=== PATIENT | male | born 1955 | race Caucasian/White ===

== ENCOUNTER 2018-03-14 12:41 | Day surgery (SDC) | payer OTHER ==
[2018-03-11 10:07] VITALS: BMI 23.0
[~2018-03-14 12:41] MED LIST: DEXAMETHASONE SOD PHOSPHATE 10 MG/ML 1 ML VIAL IV ONE; DEXAMETHASONE SOD PHOSPHATE 4 MG/ML 1 ML VIAL IV ONE; FAMOTIDINE 20 MG/2 ML VIAL IV ONE; HYDROmorphone 0.5 MG/0.5 ML SYRINGE IVP PRN; ONDANSETRON 4 MG/2 ML VIAL IVP ONE; ceFAZolin 1,000 MG in DEXTROSE/WATER 1 50ML.BAG IV ONE
[2018-03-14] MEDS: OXYMETAZOLINE 0.05% NASL SPRAY 1 SPRAY BOTTLE NASAL ONE ×5 (13:03→13:24)
[2018-03-14 13:11] VITALS: TEMP 97.6
[2018-03-14] MEDS: LACTATED RINGERS 1,000 ML IV SCH ×2 (13:14→13:51)
[2018-03-14] MEDS ORDERED: LIDOCAINE 1% 20 ML VIAL (10MG/ML) FOR IV START INTRADERMA ONE (13:15)
[2018-03-14] MEDS ORDERED: PROPOFOL 10 MG/ML 20 ML VIAL IV ONE (13:54)
[2018-03-14] MEDS ORDERED: MIDAZOLAM 2 MG/2 ML VIAL ONE (13:54)
[2018-03-14] MEDS ORDERED: SUCCINYLCHOLINE CHLORIDE 100 MG/5 ML SYR IV ONE (13:54)
[2018-03-14] MEDS ORDERED: fentaNYL (PF) 50 MCG/ML 2 ML AMP ONE (13:54)
[2018-03-14] MEDS ORDERED: DEXAMETHASONE SOD PHOS (MDV) 100 MG/10 ML VIAL ONE (13:54)
[2018-03-14] MEDS ORDERED: LIDOCAINE 1% INJ 10MG/ML (20 ML MDV) ONE (13:54)
[2018-03-14] MEDS ORDERED: ePHEDrine SULFATE/0.9% NACL/PF 50 MG/5 ML SYRINGE IV ONE (13:54)
[2018-03-14] MEDS ORDERED: LIDOCAINE 1%-EPI 1:100,000 30 ML VIAL SUBMUCOSAL ONE ×3 (14:07→14:11)
[2018-03-14] MEDS ORDERED: BUPIVACAINE (PF) 0.5% 30 ML VIAL MISCELLANE ONE ×3 (14:08→14:11)
[2018-03-14] MEDS ORDERED: BACITRACIN 500 UNIT/GM OINT 28.4 GM TUBE TOPICAL ONE (14:30)
--- NOTE | 2018-03-14 15:26 | P.OP ---
Date of Procedure: 03/14/18 Preoperative Diagnosis: Deviated nasal septum Hypertrophy of nasal turbinates Postoperative Diagnosis: Same Procedure(s) Performed: Septoplasty Bilateral submucosal resection of the inferior turbinates with outfracturing compression Anesthesia: RHETT Surgeon: Dank Verde Estimated Blood Loss (ml): 5 Pathology: other (Septum) Condition: stable Disposition: PACU Indications for Procedure: Patient has nasal obstruction was found have a severe deviated nasal septum. Correction was recommended. This appeared to be contributing to his snoring. He also had issues with large obstructive inferior turbinates. He failed medical therapy and failed Flonase nasal spray therapy. Operative Findings: Deviated nasal septum to the right severe with a high percent occlusion with large obstructive inferior turbinates. Description of Procedure: DESCRIPTION OF OPERATION: This patient was taken to the operative room and placed in the supine position. A general inhalation anesthetic was administered to the patient by the department of anesthesia with a functioning IV line in place. The patient was monitored throughout the entire case by the department of anesthesia. The eyes were taped shut for protection. The patient was placed in a slight reverse Trendelenburg position. The patient had previously utilize Afrin nasal spray preoperatively. The nose was evaluated and the septum lateral nasal wall and inferior turbinates were injected with lidocaine 1% with epinephrine 1 100,000 bilaterally. Approximately 10 minutes were allowed wait for full vasoconstrictive effects to take place. At this point a caudal incision was made over the caudal portion of the left septum down to the mucoperichondrium. A mucoperichondrial flap was elevated on the left side and dissection was carried with use of tunnels posteriorly. We then made a crossover incision through the cartilage to the contralateral side and for the mucoperichondrial flap development was performed to the extent of visualization on the contralateral side. After the cartilage was freed with use of several crosshatching incisions and removal of some redundant strips of septal cartilage, the septum was straightened and placed back in the midline. The septum was sutured fixated to the ovarian groove. Excellent straightening occurred and the septum was visibly straight. Incision was closed with a 40 rapid Vicryl. We utilized a running nonlocking fashion for closure of the incision. A quilting stitch was used to reapproximate the septal flaps with use of a 40 rapid Vicryl. Intranasal splints were inserted and fixated at the end of the case. We utilized Chaviar nasal splints. There will be removed and the patient returns to the office. Attention was then paid to the inferior turbinates. The bilateral inferior turbinates were hypertrophic and obstructive. We entered the anterior portion of the inferior turbinates with use of a microdebrider. We remove bone and submucosal elements with use of a microdebrider bilaterally. The inferior turbinates underwent a submucosal resection with removal of submucosal tissue and bone. We obtained a much better and normal in size for breathing. The inferior turbinates were then outfractured and compressed with a Splashtop, Inces nasal elevator. Excellent airway was obtained and was symmetric bilaterally. No bleeding was encountered.
[2018-03-14 16:11] VITALS: BP 145/77; PULSE 63; RESP 18
== END 2018-03-14 16:29 | disposition home or self-care (01) ==
LOC: OR 12:41
PROVIDERS: ATTEND Otolaryngology
DX: J34.2 Deviated nasal septum (principal); J34.3 Hypertrophy of nasal turbinates; J34.89 Other specified disorders of nose and nasal sinuses; F17.200 Nicotine dependence, unspecified, uncomplicated
CPT/HCPCS: 88300; 30140; 30520; J2250; J1100 ×2; J2405; J2001; J3010; J0690; J0330; J2704

== ENCOUNTER 2018-11-22 18:57 | Observation (INO) | payer OTHER ==
[2018-11-22 19:32] LABS: Basophils # (A) 0.1 k/uL (0-0.2); Basophils % (A) 1 %; Eosinophils # (A) 0.3 k/uL (0-0.7); Eosinophils % (A) 2 %; HGB 15.1 gm/dL (13.0-17.5); Lymphocytes # (A) 1.8 k/uL (1.0-4.8); Lymphocytes % (A) 12 %; MCHC 32.1 g/dL (31.0-37.0); MCV 87.3 fL (80.0-100.0); Mean Platelet Volume 6.4; Monocytes # (A) 0.8 k/uL (0-1.0); Monocytes % (A) 5 %; Neutrophils # (A) 12.3 k/uL (1.3-7.7); Neutrophils % (A) 80 %; Platelet Count 370 k/uL (150-450); RBC 5.39 m/uL (4.30-5.90); RDW 13.2 % (11.5-15.5); WBC 15.3 k/uL (3.8-10.6)
[2018-11-22 19:38] LABS: ALT 25 U/L (21-72); AST 22 U/L (17-59); Albumin 4.6 g/dL (3.5-5.0); Alkaline Phosphatase 97 U/L (38-126); Anion Gap 8 mmol/L; Blood Urea Nitrogen 14 mg/dL (9-20); C Reactive Protein <5.0 mg/L (<10.0); Calcium 9.9 mg/dL (8.4-10.2); Carbon Dioxide 29 mmol/L (22-30); Chloride 103 mmol/L (98-107); Glucose 97 mg/dL (74-99); Potassium 4.8 mmol/L (3.5-5.1); Sodium 140 mmol/L (137-145); Total Bilirubin 0.4 mg/dL (0.2-1.3); Total Protein 7.2 g/dL (6.3-8.2)
--- NOTE | 2018-11-22 19:50 | XR ---
EXAMINATION TYPE: XR ankle complete RT DATE OF EXAM: 11/22/2018 COMPARISON: NONE HISTORY: Ankle pain TECHNIQUE: 3 views FINDINGS: Ankle mortise is anatomic. I see no fracture nor dislocation. Joint spaces are normal. IMPRESSION: Negative right ankle exam.
--- NOTE | 2018-11-22 20:12 | US ---
EXAMINATION TYPE: US venous doppler duplex LE RT DATE OF EXAM: 11/22/2018 7:55 PM COMPARISON: NONE CLINICAL HISTORY: Pain. SIDE PERFORMED: Right TECHNIQUE: The lower extremity deep venous system is examined utilizing real time linear array sonog brittani with graded compression, doppler sonography and color-flow sonography. VESSELS IMAGED: External Iliac Vein (EIV) Common Femoral Vein Deep Femoral Vein Greater Saphenous Vein * Femoral Vein Popliteal Vein Small Saphenous Vein * Proximal Calf Veins (* superficial vessels) Right Leg: Negative for DVT IMPRESSION: No evidence of deep venous thrombosis in the right leg. Normal exam.
[2018-11-22 20:25] LABS: Erythrocyte Sedimentation Rate 2 mm/hr (0-15)
[2018-11-22] MEDS ORDERED: COLCHICINE 0.6 MG EACH PO STA (21:23)
[2018-11-22] MEDS ORDERED: ACETAMINOPHEN TAB 325 MG TAB PO PRN (21:24)
[2018-11-22] MEDS ORDERED: predniSONE 50 MG TAB PO STA (21:24)
[2018-11-22] MEDS ORDERED: IBUPROFEN 400 MG TAB PO PRN (21:24)
[2018-11-22] MEDS ORDERED: NALOXONE 0.4 MG/ML 1 ML VIAL IV PRN (21:24)
--- NOTE | 2018-11-22 21:28 | ED ---
Lower Extremity Injury HPI - General Source: patient Mode of arrival: ambulatory Limitations: no limitations <Shea Vasquez - Last Filed: 11/22/18 23:24> <Sebastian Mayen Debra - Last Filed: 11/22/18 23:42> - General Chief Complaint: Extremity Injury, Lower Stated Complaint: ankle problems Time Seen by Provider: 11/22/18 19:03 - History of Present Illness Initial Comments: 63-year-old male presenting today for chief complaint of right ankle pain and swelling. Patient states around 2 PM he began noticing that his right ankle is sore with ambulation. Patient states by 5 PM he is unable to ambulate. He states when he took off his shoe he noticed swelling. Patient states he did not fall trip or have any injury to the right ankle. He states that he attempted to pinpoint where the pain was an most the pain was tender to palpation over the ankle joint. Patient states it increases with range of motion. Patient states he is unable to bear weight secondary to the severity of pain. Patient denies history of gout. Patient denies any recent fever or chills night sweats or general malaise. Patient denies any recent surgeries history of cancer history of blood clot or DVT. She denies any coolness or pallor to the extremity. Patient is a every day smoker. Remaining review of systems negative, patient denies any recent shortness of breath, chest pain, back pain, abdominal pain, nausea or vomiting, numbness or tingling, dysuria or hematuria, constipation or diarrhea, headaches or visual changes, or any other complaints. (Shea Vasquez) - Related Data Home Medications Medication Instructions Recorded Confirmed Cholecalciferol [Vitamin D3] 1,000 unit PO DAILY 11/22/18 11/22/18 L.acidoph,Paracasei, B.lactis 1 cap PO DAILY 11/22/18 11/22/18 [Probiotic] Lactase [Dairy Relief] 3,000 unit PO DAILY 11/22/18 11/22/18 Multivitamin,Therapeutic [Thera] 1 tab PO DAILY 11/22/18 11/22/18 Allergies Allergy/AdvReac Type Severity Reaction Status Date / Time No Known Allergies Allergy Verified 11/22/18 19:58 Review of Systems ROS Other: All systems not noted in ROS Statement are negative. <Shea Vasquez - Last Filed: 11/22/18 23:24> ROS Other: All systems not noted in ROS Statement are negative. <Sebastian Mayen - Last Filed: 11/22/18 23:42> ROS Statement: Those systems with pertinent positive or pertinent negative responses have been documented in the HPI. Past Medical History Additional Past Medical History / Comment(s): HX OF KIDNEY STONES History of Any Multi-Drug Resistant Organisms: None Reported Past Surgical History: Orthopedic Surgery Additional Past Surgical History / Comment(s): ARTHROSCOPY KNEE, SHOULDER, SX FOR KIDNEY STONE Past Anesthesia/Blood Transfusion Reactions: No Reported Reaction Past Psychological History: No Psychological Hx Reported Smoking Status: Current every day smoker - Past Family History Mother Family Medical History: No Reported History <Shea Vasquez - Last Filed: 11/22/18 23:24> General Exam Limitations: no limitations <Shea Vasquez - Last Filed: 11/22/18 23:24> - General Exam Comments Initial Comments: General: The patient is awake and alert, in no distress, and does not appear acutely ill. Eye: Pupils are equal, round and reactive to light, extra-ocular movements are intact. No nystagmus. There is normal conjunctiva bilaterally. No signs of icterus. Ears, nose, mouth and throat: There are moist mucous membranes and no oral lesions. Neck: The neck is supple, there is no tenderness or JVD. Cardiovascular: There is a regular rate and rhythm. No murmur, rub or gallop is appreciated. Respiratory: Lungs are clear to auscultation, respirations are non-labored, breath sounds are equal. No wheezes, stridor, rales, or rhonchi. Musculoskeletal: Normal ROM, no tenderness of the left ankle, patient refuses to range at the right ankle secondary to pain. Full range of motion at the right hip and knee. Strength 5/5 of the left lower extremity, right hip left knee patient refuses to strength testing at right ankle. Sensation intact in all proximal distal to injury site, he denies any differences in comparison with unaffected extremity. DP pulses equal bilaterally 2+. Proportion is warm to palpation. No pain to palpation of the calf, negative Homans sign. Soft tissue swelling at the lateral and medial malleolus. No pitting edema. No significant erythema, warmth to palpation of right ankle joint. Neurological: A&O x 3. CN II-XII intact, There are no obvious motor or sensory deficits. Coordination appears grossly intact. Speech is normal. Skin: Skin is warm and dry and no rashes or lesions are noted. Psychiatric: Cooperative, appropriate mood & affect, normal judgment. (Shea Vasquez) Course Vital Signs 11/22/18 11/22/18 11/22/18 18:58 21:00 22:05 Temperature 97.6 F 98.4 F 98.3 F Pulse Rate 67 70 70 Respiratory 16 20 18 Rate Blood Pressure 139/76 133/73 138/78 O2 Sat by Pulse 100 98 97 Oximetry Medical Decision Making - Lab Data Result diagrams: 11/22/18 19:20 11/22/18 19:20 <Shea Vasquez - Last Filed: 11/22/18 23:24> - Lab Data Result diagrams: 11/22/18 19:20 11/22/18 19:20 <Sebastian Mayen - Last Filed: 11/22/18 23:42> - Medical Decision Making 63-year-old male presenting for atraumatic right ankle pain. Soft tissue swelling and warmth to palpation on exam. Patient is unable to weight-bear. No constitutional symptoms. Patient is afebrile. Appearing nontoxic. Leukocytosis on laboratory studies. CRP within normal limits. X-ray negative for acute osseous injury. No noted joint effusion. Ultrasound negative for deep venous thrombosis. At this time is unclear the etiology of right ankle swelling. Differential diagnosis includes gout exacerbation versus septic joint. We contacted orthopedic surgery speaking with physician sales service assistant JENARO Cai. At this time he states hold off on IV antibiotics, patient be assessed in the morning given patient does not appear to be obvious septic joint. Repeat CRP, CBC and ESR in the morning. Patient be treated for gout with colchicine. 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 Patient was admitted to Dr. Menard, after speaking with attending provider Dr. Mayen who assessed the patient in person. He is agreeable with impression plan and patient plan of care. No further orders at this time. (Shea Vasquez) 60-year-old male with atraumatic right ankle pain. Patient does have some warmth and erythema of the right ankle. There is concern for infection, septic arthritis. Laboratory studies obtained, patient is elevated white blood cell count, otherwise laboratory studies are unremarkable. Given the concern for infectious arthritis of discussed case with Marco Antonio castorena for Dr. Garcia. Given the stable vitals, afebrile patient with normal laboratory studies including normal CRP, normal ESR and only elevated white blood cell count, felt that this may be gout versus septic arthritis. Recommends treatment for gout, holding antibiotics awaiting reevaluation. Orthopedics will see patient in the morning. Asked to consult infectious disease as well. (Sebastian Mayen) - Lab Data Lab Results 11/22/18 11/22/18 11/22/18 Range/Units 19:20 19:20 19:20 WBC 15.3 H (3.8-10.6) k/uL RBC 5.39 (4.30-5.90) m/uL Hgb 15.1 (13.0-17.5) gm/dL Hct 47.0 (39.0-53.0) % MCV 87.3 (80.0-100.0) fL MCH 28.0 (25.0-35.0) pg MCHC 32.1 (31.0-37.0) g/dL RDW 13.2 (11.5-15.5) % Plt Count 370 (150-450) k/uL Neutrophils % 80 % Lymphocytes % 12 % Monocytes % 5 % Eosinophils % 2 % Basophils % 1 % Neutrophils # 12.3 H (1.3-7.7) k/uL Lymphocytes # 1.8 (1.0-4.8) k/uL Monocytes # 0.8 (0-1.0) k/uL Eosinophils # 0.3 (0-0.7) k/uL Basophils # 0.1 (0-0.2) k/uL ESR 2 (0-15) mm/hr Sodium 140 (137-145) mmol/L Potassium 4.8 (3.5-5.1) mmol/L Chloride 103 (98-107) mmol/L Carbon Dioxide 29 (22-30) mmol/L Anion Gap 8 mmol/L BUN 14 (9-20) mg/dL Creatinine 0.75 (0.66-1.25) mg/dL Est GFR (CKD-EPI)AfAm >90 (>60 ml/min/1.73 sqM) Est GFR (CKD-EPI)NonAf >90 (>60 ml/min/1.73 sqM) Glucose 97 (74-99) mg/dL Uric Acid 4.9 (3.5-8.5) mg/dL Calcium 9.9 (8.4-10.2) mg/dL Total Bilirubin 0.4 (0.2-1.3) mg/dL AST 22 (17-59) U/L ALT 25 (21-72) U/L Alkaline Phosphatase 97 (38-126) U/L C-Reactive Protein <5.0 (<10.0) mg/L Total Protein 7.2 (6.3-8.2) g/dL Albumin 4.6 (3.5-5.0) g/dL Disposition Is patient prescribed a controlled substance at d/c from ED?: No Time of Disposition: 21:28 Decision to Admit Reason: Admit from EC Decision Date: 11/22/18 Decision Time: 21:28 <Shea Vasquez - Last Filed: 11/22/18 23:24> <Sebastian Mayen - Last Filed: 11/22/18 23:42> Clinical Impression: Right ankle swelling, Inability to bear weight, Right ankle pain, Leukocytosis Disposition: ADMITTED IP TO THIS [facility] Condition: Stable
[2018-11-22] MEDS: SODIUM CHLORIDE 0.9% 1,000 ML IV SCH (21:31)
[2018-11-22 22:25] VITALS: BMI 22.4
[2018-11-23] MEDS ORDERED: HYDROcodone/APAP 5-325MG 1 EACH TAB PO PRN (00:20)
[2018-11-23] MEDS ORDERED: TEMAZEPAM 15 MG CAP PO PRN (00:20)
[2018-11-23] MEDS ORDERED: ALPRAZolam 0.25 MG TAB PO PRN (00:20)
--- NOTE | 2018-11-23 06:57 | HP ---
HISTORY AND PHYSICAL DATE OF SERVICE: 11/22/2018 CHIEF COMPLAINT: Right ankle pain. HISTORY OF PRESENT ILLNESS: This 63-year-old gentleman with past medical history of COPD, history of kidney stones, history of DJD, history of nicotine dependence being followed by Dr. Wayne in the outpatient setting, was complaining of right ankle pain. 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 A uric acid is normal. X- rays were also normal. There is no history of trauma. The patient was given Colchicine as well as steroids and the pain apparently got better. Patient admitted for further evaluation with Infectious Disease and as well as orthopedic consultation. There is no history of fever, rigors or chills. No history of headache, loss of consciousness, seizures. PAST MEDICAL HISTORY: History of COPD, history of kidney stones, history of DJD, history of nicotine dependence. MEDICATIONS: Prior to admission home medications: 1. Multivitamins one p.o. daily. 2. Lactase. 3. Lactobacillus. 4. Vitamin D3. ALLERGIES: None. FAMILY HISTORY: No history of any heart disease or strokes. No history of gouty attacks in family. SOCIAL HISTORY: History of smoking. No history of alcohol intake. REVIEW OF SYSTEMS: ENT: No diminished vision, no diminished hearing. CARDIOVASCULAR: S1, S2. RESPIRATORY: No cough or hemoptysis. GI no nausea or vomiting. : No dysuria. NERVOUS SYSTEM: No numbness or weakness. ALLERGY/IMMUNOLOGY: No asthma or hayfever. MUSCULOSKELETAL: As mentioned earlier. HEMATOLOGY/ONCOLOGY: No history of anemia. ENDOCRINE: No history of diabetes or hypothyroidism. CONSTITUTIONAL: As mentioned earlier. DERMATOLOGY: Negative. RHEUMATOLOGY: Negative. PSYCHIATRIC: As mentioned earlier. PHYSICAL EXAMINATION: Alert and oriented times three. Pulse is 59, blood pressure 149/60, respiration 16, temperature 97.9, pulse ox 98% on room air. HEENT: Conjunctivae normal. NECK: No jugular venous distention. CARDIOVASCULAR: S1, S2 muffled. RESPIRATORY: Breath sounds diminished in the bases. No rhonchi. No crackles. ABDOMEN: Soft, nontender. No mass palpable. Legs: Minimal tenderness and swelling in the right ankle present. No erythema. No metatarsophalangeal joint involvement. Nervous system: Higher functions as mentioned earlier. Moves all 4 limbs. No focal deficits. Lymphatics: No lymph nodes palpable in the neck, axillae or groin. Skin: No ulcer, rash or bleeding. Joints as mentioned earlier. LAB STUDIES: WBC 15.3. ASSESSMENT: 1. Right ankle pain. Possibly inflammatory arthropathy, possibly gout. Rule out infectious arthritis. 2. Chronic obstructive pulmonary disease. 3. History of nephrolithiasis. 4. History of degenerative joint disease. 5. History of nicotine dependence. RECOMMENDATIONS AND DISCUSSION: In this 63-year-old gentleman who presented with multiple medical issues, at this time, we will continue to monitor. Continue the current medication. Continue Colchicine empirically. Otherwise, DVT prophylaxis and continue with the rest of the medications. See orders for details. Further recommendations to follow. Prognosis guarded. Copy of dictation being forwarded to Dr. Wayne who is the primary care physician. Closely follow with orthopedic surgery and Infectious Disease. MMODL / IJN: [id number] /
[2018-11-23 07:32] LABS: Basophils % (A) 0 %; Eosinophils % (A) 0 %; HCT 44.2 % (39.0-53.0); HGB 14.3 gm/dL (13.0-17.5); Lymphocytes # (A) 0.7 k/uL (1.0-4.8); Lymphocytes % (A) 6 %; MCH 28.2 pg (25.0-35.0); MCHC 32.4 g/dL (31.0-37.0); MCV 86.9 fL (80.0-100.0); Mean Platelet Volume 6.5; Monocytes # (A) 0.4 k/uL (0-1.0); Monocytes % (A) 4 %; Neutrophils # (A) 9.6 k/uL (1.3-7.7); Neutrophils % (A) 89 %; Platelet Count 339 k/uL (150-450); RBC 5.08 m/uL (4.30-5.90); RDW 13.1 % (11.5-15.5); WBC 10.8 k/uL (3.8-10.6)
[2018-11-23] MEDS ORDERED: LACTASE 3000 UNIT PO SCH (09:00)
[2018-11-23] MEDS ORDERED: NON-FORMULARY DRUG (L.Acidoph,Paracasei, B.Lactis [Probiotic] 1 CAP) PO SCH (09:00)
[2018-11-23 09:15] LABS: Erythrocyte Sedimentation Rate 4 mm/hr (0-15)
[2018-11-23] MEDS: HEPARIN SODIUM,PORCINE 5,000 UNIT/ML 1 ML VIAL SQ SCH ×3 (09:36→21:15)
[2018-11-23] MEDS: MULTIVITAMINS, THERA 1 EACH TAB PO SCH (09:39)
[2018-11-23] MEDS: COLCHICINE 0.6 MG EACH PO SCH (09:39)
[2018-11-23] MEDS: CHOLECALCIFEROL 1,000 UNIT TAB PO SCH (09:39)
[2018-11-23] MEDS: NICOTINE 14MG/24HR PATCH TRANSDERM SCH (09:39)
--- NOTE | 2018-11-23 12:09 | P.CNOR ---
History of Present Illness - [facility] Consult date: 11/23/18 Consult reason: joint pain History of present illness: Patient is a 63-year-old male who presented to [facility] last night with regards to significant pain and inability to put weight on the right foot and ankle. Patient states this spontaneously occurred while at work. Patient denies any recent trauma. Patient denies any previous injury or surgery involving the right lower extremity. Patient states the pain began earlier in the day and progressed throughout the day. By late afternoon he was unable to put any weight on it and was brought to [facility]. Imaging and lab tests were done. Images demonstrated no acute fractures or dislocations. Labs worsening in for a mildly elevated white blood cell count. I was contacted by the emergency room staff regarding the patient, the case was discussed. I recommended a workup for gout, admission to internal medicine for treatment, and consults for orthopedic group and infectious disease. At bedside this morning, patient is resting comfortably. He notes no acute pain in the right foot or ankle. He states the pain is significantly improved. He is ambulated on a few separate occasions this morning with no difficulties. He denies any other orthopedic complaints at this time. Review of Systems Constitutional: Reports as per [facility] Past Medical History Past Medical History: COPD Additional Past Medical History / Comment(s): HX OF KIDNEY STONES History of Any Multi-Drug Resistant Organisms: None Reported Past Surgical History: Orthopedic Surgery Additional Past Surgical History / Comment(s): ARTHROSCOPY KNEE, SHOULDER, SX FOR KIDNEY STONE Past Anesthesia/Blood Transfusion Reactions: No Reported Reaction Past Psychological History: No Psychological Hx Reported Smoking Status: Current every day smoker - Past Family History Mother Family Medical History: No Reported History Medications and Allergies Home Medications Medication Instructions Recorded Confirmed Type Cholecalciferol [Vitamin D3] 1,000 unit PO DAILY 11/22/18 11/22/18 History L.acidoph,Paracasei, B.lactis 1 cap PO DAILY 11/22/18 11/22/18 History [Probiotic] Lactase [Dairy Relief] 3,000 unit PO DAILY 11/22/18 11/22/18 History Multivitamin,Therapeutic [Thera] 1 tab PO DAILY 11/22/18 11/22/18 History Allergies Allergy/AdvReac Type Severity Reaction Status Date / Time No Known Allergies Allergy Verified 11/22/18 19:58 Physical Examination Right lower extremity No obvious open lesions, sores, areas of erythema or soft tissue swelling appreciated Patient is full range of motion with plantar flexion, dorsiflexion, eversion and inversion Patient's strength is intact with all ranges of motion Sensation to light touch throughout extremities intact. Dorsal pedis pulses 2+ His calf is soft, no tenderness with palpation No significant tenderness with palpation over the medial and lateral malleolus, anterior aspect of the ankle joint or surrounding the calcaneus and Achilles insertion Results - Labs Labs: Abnormal Lab Results - Last 24 Hours (Table) 11/22/18 11/23/18 11/23/18 Range/Units 19:20 06:59 06:59 WBC 15.3 H 10.8 H (3.8-10.6) k/uL Neutrophils # 12.3 H 9.6 H (1.3-7.7) k/uL Lymphocytes # 0.7 L (1.0-4.8) k/uL C-Reactive Protein 10.6 H (<10.0) mg/L H & H 11/22/18 11/23/18 Range/Units 19:20 06:59 Hgb 15.1 14.3 (13.0-17.5) gm/dL Hct 47.0 44.2 (39.0-53.0) % Result Diagrams: 11/23/18 06:59 11/22/18 19:20 - Diagnostic results Ankle/Foot x-ray: report reviewed, image reviewed Assessment and Plan Plan: Imaging: Multiple views of the right ankle were obtained in the emergency room. Images demonstrated no acute fractures or dislocations. Assessment: 1. Right ankle pain 2. Likely inflammatory arthropathy right ankle, gout vs pseudogout Plan: I was able to discuss the case, including both physical exam findings and imaging studies my attending Dr. Garcia. Very low suspicion for a septic arthropathy involving the right ankle. Recommending continuation of gout medication, gentle range of motion exercises and weight-bear as tolerated. Recommending one additional night stay and recheck of labs on morning of 10/27 Ice and elevate as needed Other emergency medical dispatcher recommendations Time with Patient: Less than 30
[2018-11-23] MEDS: SODIUM CHLORIDE 0.9% 1,000 ML IV SCH (21:30)
--- NOTE | 2018-11-23 22:12 | PN ---
PROGRESS NOTE DATE OF SERVICE: 11/23/2018 This 63-year-old gentleman who was admitted with right ankle pain also had gait dysfunction. The patient treated medically for gout. At this time no chest pain, no palpitations. Orthopedics and as well as Infectious Disease evaluation in progress at this time. Cultures are negative so far. Venous Doppler is also negative. Gout versus pseudogout is considered. EXAM: Alert and oriented times three. Pulse 61. Blood pressure 130/77, respiration 18. Temperature 97.2, pulse ox 98% on room air. HEENT conjunctivae normal. NECK: No jugular venous distention. Cardiovascular; S1, S2 muffled. Respiratory: Breath sounds diminished in the bases. No rhonchi. No crackles. Abdomen is soft, nontender. Legs: Right ankle joints are painful. LAB STUDIES: WBC 7.8, C-reactive protein 7.6. ASSESSMENT: 1. Right ankle pain and possible inflammatory arthropathy, gout versus pseudogout. Rule out infectious arthritis. 2. Chronic obstructive pulmonary disease. 3. History of nephrolithiasis. 4. Increased elevated CRP. 5. History of degenerative joint disease. 6. History of nicotine dependence. 7. Elevated WBC, improved. RECOMMENDATIONS AND DISCUSSION: Recommend to continue current medications, management and continue symptomatic treatment. Otherwise closely follow with Infectious Disease and as well as orthopedic surgery. Further recommendations to follow. MMODL / IJN: [id number] /
--- NOTE | 2018-11-23 23:32 | P.CONS ---
History of Present Illness - Reason for Consult Consult date: 11/23/18 - Chief Complaint Acute pain right ankle - History of Present Illness Pleasant 63-year-old male who routinely relates that his health is quite good except for his COPD and degenerative joint disease. Relates that he the sudden onsets of pain to the right ankle that rapidly made it impossible for him to walk because of the severe pain. Consequently presented to the emergency center and was admitted for further evaluation. Concerns for septic arthritis infectious diseases and orthopedic consults were requested. Apparently one orthopedics was contacted there was concerns to crystal arthropathy and the patient was treated with colchicine and some steroid. At this point in time the patient is considerably improved. He is unable to get to the bathroom with a walker without difficulty. He is feeling considerably better and denies fevers chills or rigors or sweats. He had no antecedent fever or injury to the ankle before the onset of this difficulty. Review of Systems HEENT:Denies headache or acute visual change. Denies sinus or mouth discomforts. Denies neck stiffness or pain. Denies significant oral cavity pain. Denies difficulty on swallowing. Lungs: No change in his baseline shortness of breath, no increase of cough no sputum production or hemoptysis Cardiovascular: Denies significant shortness of breath, chest pain, chest wall pain, orthopnea, dyspnea on exertion, syncope Gastrointestinal:Denies nausea, vomiting, diarrhea, constipation, hematemesis, melena, hematochezia. No no significant change of bowel habit noticed. Musculoskeletal: As per the HPI second onset of severe pain to the right ankle without other new acute joint troubles Skin: Denies new rash or lesions. No new ulcers or wounds are related.. Neuro: Denies headache or visual change. Denies any new onset weakness or difficulty with ambulation. Denies falls or seizures. Psychiatric:Denies anxiety or depression. Endocrine: Denies significant fatigue, denies significant weight loss or weight gain. Past Medical History Past Medical History: COPD Additional Past Medical History / Comment(s): HX OF KIDNEY STONES History of Any Multi-Drug Resistant Organisms: None Reported Past Surgical History: Orthopedic Surgery Additional Past Surgical History / Comment(s): ARTHROSCOPY KNEE, SHOULDER, SX FOR KIDNEY STONE Past Anesthesia/Blood Transfusion Reactions: No Reported Reaction Past Psychological History: No Psychological Hx Reported Additional Psychological History / Comment(s): As noted remains tobacco smoker. . No recent travel. Positive . Pet dog. No current alcohol or recreational drug use Smoking Status: Current every day smoker - Past Family History Mother Family Medical History: No Reported History Medications and Allergies Home Medications and Allergies Comment(s): Current Medications Acetaminophen (Tylenol Tab) 650 mg PO Q6HR PRN PRN Reason: Mild Pain or Fever > 100.5 Hydrocodone Bitart/Acetaminophen (Schwertner 5-325) 1 each PO Q6HR PRN PRN Reason: Pain Alprazolam (Xanax) 0.25 mg PO TID PRN PRN Reason: Anxiety Cholecalciferol (Vitamin D3) 1,000 unit PO DAILY [facility] Last Admin: 11/23/18 09:39 Dose: 1,000 unit Documented by: Colchicine (Colcrys) 0.6 mg PO DAILY [facility] Last Admin: 11/23/18 09:39 Dose: 0.6 mg Documented by: Heparin Sodium (Porcine) (Heparin) 5,000 unit SQ Q12HR [facility] Last Admin: 11/23/18 21:15 Dose: Not Given Documented by: Sodium Chloride (Saline 0.9%) 1,000 mls @ 20 mls/hr IV .Q24H [facility] Last Admin: 11/22/18 21:31 Dose: 20 mls/hr Documented by: Ibuprofen (Motrin) 400 mg PO Q6HR PRN PRN Reason: Mild Pain or Fever > 100.5 Multivitamins (Theragran) 1 each PO DAILY@1200 [facility] Last Admin: 11/23/18 09:39 Dose: 1 each Documented by: Naloxone HCl (Narcan) 0.2 mg IV Q2M PRN PRN Reason: Opioid Reversal Nicotine (Habitrol 14mg/24hr Patch) 1 patch TRANSDERM DAILY [facility] Last Admin: 11/23/18 09:39 Dose: 1 patch Documented by: Temazepam (Restoril) 15 mg PO HS PRN PRN Reason: Insomnia Home Medications Medication Instructions Recorded Confirmed Type Cholecalciferol [Vitamin D3] 1,000 unit PO DAILY 11/22/18 11/22/18 History L.acidoph,Paracasei, B.lactis 1 cap PO DAILY 11/22/18 11/22/18 History [Probiotic] Lactase [Dairy Relief] 3,000 unit PO DAILY 11/22/18 11/22/18 History Multivitamin,Therapeutic [Thera] 1 tab PO DAILY 11/22/18 11/22/18 History Allergies Allergy/AdvReac Type Severity Reaction Status Date / Time No Known Allergies Allergy Verified 11/22/18 19:58 Physical Exam Vitals: Vital Signs Temp Pulse Resp BP Pulse Ox 11/23/18 19:08 97.6 F 61 18 138/73 96 11/23/18 15:00 98.1 F 64 16 111/65 95 11/23/18 07:00 97.9 F 64 15 120/66 95 11/23/18 01:08 98.4 F 60 16 122/71 96 Intake and Output 11/23/18 11/23/18 11/24/18 14:59 22:59 06:59 Intake Total 240 240 Balance 240 240 Intake: Oral 240 240 Other: Voiding Method Toilet # Voids 1 63-year-old male with a thin build is in no distress HEENT: Anicteric conjunctiva are pink and moist nasal mucosa grossly intact without significant lesions, there is no thrush. Neck: The neck is supple without significant lymphadenopathy or thyromegaly. Lungs: Good bilateral air entry without significant crackles or wheezing. There is no significant bronchial sounds. There is no egophony or dullness. Heart: Regular rate and rhythm with an audible S1-S2, no S3 no S4. There is no significant murmur click or rub, PMI was nondisplaced. Abdomen: Positive bowel sounds soft and nontender without palpable masses or organomegaly. There was no guarding or rebound. Extremities: The upper extremities have excellent pulses they are symmetric, no significant petechiae or telangiectasia. No splinter hemorrhages were noted. The peripheral pulses were 2+ and symmetric. The left leg without edema. The right lower extremity shows evidence of a small area of erythema on the lateral aspect of the ankle near the malleolus. There is no other rash. It is not tender to touch or to range of motion. He is now able to bear weight Neuro: Awake alert oriented to person place and time. There are no acute new gross focal sensory motor deficits. Results CBC & Chem 7: 11/23/18 06:59 11/22/18 19:20 Labs: Abnormal Lab Results - Last 24 Hours (Table) 11/23/18 11/23/18 Range/Units 06:59 06:59 WBC 10.8 H (3.8-10.6) k/uL Neutrophils # 9.6 H (1.3-7.7) k/uL Lymphocytes # 0.7 L (1.0-4.8) k/uL C-Reactive Protein 10.6 H (<10.0) mg/L Assessment and Plan (1) Inability to bear weight Current Visit: Yes Status: Acute Code(s): R26.89 - OTHER ABNORMALITIES OF GAIT AND MOBILITY SNOMED Code(s): 963535732 (2) Right ankle pain Current Visit: Yes Status: Acute Code(s): M25.571 - PAIN IN RIGHT ANKLE AND JOINTS OF RIGHT FOOT SNOMED Code(s): 245973420 (3) Leukocytosis Narrative/Plan: 63-year-old male presents to hospital with the sudden onset of inability to bear weight to the right ankle. The patient has no antecedent trauma or other acute change. He can recall. She's not had this trouble in the past. With admission initiation of colchicine and it burst of steroid the patient is now doing considerably better. 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 Uric acid is normal which does not definitively rule out gouty disease. The patient is being followed by orthopedic surgery follow them in the outpatient setting. No evidence of septic arthritis no need for antibiotic therapy. Current Visit: Yes Status: Acute Code(s): D72.829 - ELEVATED WHITE BLOOD CELL COUNT, UNSPECIFIED SNOMED Code(s): 504133764
[2018-11-23 23:56] VITALS: RESP 16
[2018-11-24 07:31] VITALS: BP 109/67; PULSE 51; TEMP 97.6
[2018-11-24 08:09] LABS: Basophils # (A) 0.1 k/uL (0-0.2); Basophils % (A) 1 %; Eosinophils # (A) 0.2 k/uL (0-0.7); Eosinophils % (A) 2 %; HCT 44.3 % (39.0-53.0); HGB 13.9 gm/dL (13.0-17.5); Lymphocytes # (A) 2.9 k/uL (1.0-4.8); Lymphocytes % (A) 27 %; MCH 27.9 pg (25.0-35.0); MCHC 31.3 g/dL (31.0-37.0); Monocytes # (A) 0.7 k/uL (0-1.0); Monocytes % (A) 6 %; Neutrophils # (A) 6.8 k/uL (1.3-7.7); Neutrophils % (A) 63 %; Platelet Count 334 k/uL (150-450); RBC 4.97 m/uL (4.30-5.90); RDW 13.6 % (11.5-15.5); WBC 10.8 k/uL (3.8-10.6)
[2018-11-24 08:24] LABS: Anion Gap 3 mmol/L; Blood Urea Nitrogen 17 mg/dL (9-20); Calcium 8.7 mg/dL (8.4-10.2); Carbon Dioxide 32 mmol/L (22-30); Chloride 103 mmol/L (98-107); Glucose 89 mg/dL (74-99); Potassium 4.3 mmol/L (3.5-5.1); Sodium 138 mmol/L (137-145)
[2018-11-24] MEDS: HEPARIN SODIUM,PORCINE 5,000 UNIT/ML 1 ML VIAL SQ SCH (09:28)
[2018-11-24] MEDS: CHOLECALCIFEROL 1,000 UNIT TAB PO SCH (09:31)
[2018-11-24] MEDS: MULTIVITAMINS, THERA 1 EACH TAB PO SCH (09:31)
[2018-11-24] MEDS: COLCHICINE 0.6 MG EACH PO SCH (09:32)
[2018-11-24] MEDS: NICOTINE 14MG/24HR PATCH TRANSDERM SCH (09:32)
--- NOTE | 2018-11-24 10:14 | P.PN ---
Subjective Progress Note Date: 11/24/18 Principal diagnosis: Right ankle pain Patient symptoms continue to improve with regards to right ankle. He is able to ambulate with no pain. He denies any fevers or chills, or increasing pain involving the right ankle. Objective - Vital Signs Vital signs: Vital Signs Temp 97.6 F 11/24/18 07:30 Pulse 51 L 11/24/18 07:31 Resp 16 11/24/18 07:31 BP 109/67 11/24/18 07:30 Pulse Ox 92 L 11/24/18 07:30 Intake & Output 11/23/18 11/24/18 11/24/18 18:59 06:59 18:59 Intake Total 480 400 240 Balance 480 400 240 Intake: Oral 480 400 240 Other: Voiding Method Toilet Toilet # Voids 1 1 - Exam Right lower extremity: No obvious soft tissue swelling or signs of erythema Open lesions present Full range of motion of the right ankle, strength is intact Sensory exam to light touch is intact, calf is soft no tenderness with palpat ion. Dorsal pedis pulses 2+ - Labs CBC & Chem 7: 11/24/18 07:20 11/24/18 07:20 Labs: Abnormal Lab Results - Last 24 Hours (Table) 11/24/18 11/24/18 Range/Units 07:20 07:20 WBC 10.8 H (3.8-10.6) k/uL Carbon Dioxide 32 H (22-30) mmol/L Assessment and Plan Plan: Assessment: 1. Right ankle pain 2. 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
--- NOTE | 2018-11-25 05:49 | DS ---
DISCHARGE SUMMARY DATE OF SERVICE: 11/24/2018 FINAL DIAGNOSES: 1. Right ankle pain, possible inflammatory arthropathy, possibly gout versus pseudogout. Infectious arthritis unlikely. 2. Chronic obstructive pulmonary disease. 3. History of nephrolithiasis. 4. Elevated CRP. 5. History of degenerative joint disease. 6. History of nicotine dependence. 7. Elevated WBC, improved. DISCHARGE DISPOSITION: The patient will be discharged in stable condition with guarded prognosis. HISTORY OF PRESENT ILLNESS: This 63-year-old gentleman with a past medical history of multiple medical problems admitted with right ankle pain and swelling. The patient also had elevated WBC. The patient responded to colchicine and other symptomatic. Uric acid is normal. Pseudogout was also considered. Patient was seen by Orthopedic Surgery and as well as Infectious Disease and there is no evidence of any infectious arthritis at this time. No evidence of effusion. The patient improved significantly. Patient follows with Dr. Wayne at [facility] in the outpatient setting. On exam, vitals are stable. CARDIOVASCULAR: S1, S2 muffled. ABDOMEN: Soft. NERVOUS SYSTEM: No focal deficits. DISCHARGE ADVICE: 1. Diet is cardiac. 2. Activity limited until followup. 3. Follow up with Dr. Wayne in 2 to 3 days. Medications, other medications are as follows: 1. Lactase as before. 2. Multivitamin one p.o. daily. 3. Vitamin D3, 1000 daily. 4. Colcrys 0.6 daily. 5. Habitrol 14 daily. 6. No smoking. 7. Motrin p.r.n. 8. Tylenol p.r.n. Follow up with Dr. Garcia as recommended. Once again, the patient will be discharged in a stable condition with guarded prognosis. MMODL / IJN: [id number] / ISAC
== END 2018-11-24 16:10 | disposition home or self-care (01) ==
LOC: EC 18:57 → 4SSUR 21:13
PROVIDERS: ADMIT Hospitalist; ATTEND Hospitalist
DX: M25.571 Pain in right ankle and joints of right foot (principal); J44.9 Chronic obstructive pulmonary disease, unspecified; Z87.442 Personal history of urinary calculi; R79.82 Elevated C-reactive protein (CRP); M19.90 Unspecified osteoarthritis, unspecified site; Z87.891 Personal history of nicotine dependence; D72.829 Elevated white blood cell count, unspecified; M25.471 Effusion, right ankle
CPT/HCPCS: 99285; 36415; 80053; 80048; 85652 ×2; 84550; 85025 ×3; 86140 ×2; 73610; 93971; G0378 ×3; S4990 ×2; J7512

== ENCOUNTER 2019-02-19 09:26 | Day surgery (SDC) | payer OTHER ==
[2019-02-18 09:53] VITALS: BMI 23.7
[~2019-02-19 09:26] MED LIST changes: -DEXAMETHASONE SOD PHOSPHATE 10 MG/ML 1 ML VIAL IV ONE; -DEXAMETHASONE SOD PHOSPHATE 4 MG/ML 1 ML VIAL IV ONE; -FAMOTIDINE 20 MG/2 ML VIAL IV ONE; -HYDROmorphone 0.5 MG/0.5 ML SYRINGE IVP PRN; +LACTATED RINGERS 1,000 ML IV SCH; +LIDOCAINE 1% 20 ML VIAL (10MG/ML) FOR IV START INTRADERMA PRN; -ONDANSETRON 4 MG/2 ML VIAL IVP ONE; -ceFAZolin 1,000 MG in DEXTROSE/WATER 1 50ML.BAG IV ONE
[2019-02-19 10:21] VITALS: TEMP 97.4
[2019-02-19] MEDS ORDERED: LACTATED RINGERS 1,000 ML IV ONE (10:30)
[2019-02-19] MEDS ORDERED: PROPOFOL 10 MG/ML 20 ML VIAL IV ONE (11:08)
--- NOTE | 2019-02-19 11:25 | P.PCN ---
Date of Procedure: 02/19/19 Procedure(s) Performed: BRIEF HISTORY: Patient is a 63-year-old pleasant white male scheduled for an elective colonoscopy as a part of evaluation of prior history of colon polyps. PROCEDURE PERFORMED: Colonoscopy with biopsy. PREOPERATIVE DIAGNOSIS: History of colon polyps. IV sedation per Anesthesia. PROCEDURE: After informed consent was obtained, the patient, was brought into the endoscopy unit. IV sedation was administered by Anesthesia under continuous monitoring. Digital rectal examination was normal. Initially the Olympus CF-160 flexible video colonoscope was then inserted in the rectum, gradually advanced into the cecum without any difficulty. Careful examination was performed as the scope was gradually being withdrawn. Ileocecal valve and the appendiceal orifice were visualized and appeared normal. Prep was excellent. Mucosa of the cecum, ascending colon appeared normal. In the proximal transverse colon there were 2 polyps measuring 3 mm and 5 mm in size both of which were removed by cold biopsy. Rest of the, transverse colon, descending colon, sigmoid colon, and rectum appeared normal. Retroflexion was performed in the rectum and no lesions were seen. Scattered sigmoid diverticula seen. The patient tolerated the procedure well. IMPRESSION: 5 mm and 3 mm sessile proximal transverse colon polyp status post removal by cold biopsy excised scattered similar diverticulosis RECOMMENDATIONS: Findings of this examination were discussed with the patient as well as his family. He was advised to follow with the biopsy results and have a repeat surveillance colonoscopy in 5 years from now..
[2019-02-19 11:49] VITALS: BP 126/72; PULSE 46; RESP 16
== END 2019-02-19 12:04 | disposition home or self-care (01) ==
LOC: ORWHC2ENDO 09:26
PROVIDERS: ATTEND Internal Medicine Gastroenterology
DX: Z12.11 Encounter for screening for malignant neoplasm of colon (principal); Z86.010 Personal history of colon polyps; D12.3 Benign neoplasm of transverse colon; K57.30 Diverticulosis of large intestine without perforation or abscess without bleeding; J44.9 Chronic obstructive pulmonary disease, unspecified; M19.90 Unspecified osteoarthritis, unspecified site; Z87.891 Personal history of nicotine dependence; Z79.899 Other long term (current) drug therapy; Z97.2 Presence of dental prosthetic device (complete) (partial)
CPT/HCPCS: 45380; 88305; J2704

== ENCOUNTER → 2019-10-30 | Outpatient (CLI) | payer OTHER ==
[2019-10-30 12:07] LABS: HCT 49.7 % (39.0-53.0); HGB 15.6 gm/dL (13.0-17.5); MCH 27.5 pg (25.0-35.0); MCHC 31.3 g/dL (31.0-37.0); MCV 87.7 fL (80.0-100.0); Mean Platelet Volume 7.2; Platelet Count 314 k/uL (150-450); RBC 5.67 m/uL (4.30-5.90); RDW 13.4 % (11.5-15.5); WBC 8.6 k/uL (3.8-10.6)
[2019-10-30 16:53] LABS: T4, Free (Free Thyroxine) 1.4 ng/dL (0.80-1.80)
[2019-10-30 17:16] LABS: Thyroid Peroxidase Antibodies <28.0 U/mL (0.0-60.0)
== END | disposition home or self-care (01) ==
LOC: LABWHC1 11:37
PROVIDERS: ATTEND Internal Medicine
DX: E29.1 Testicular hypofunction (principal); E55.9 Vitamin D deficiency, unspecified; R53.83 Other fatigue
CPT/HCPCS: 36415; 80327; 82306; 84140; 84153; 84270; 84439; 84443; 84481; 84482; 85027; 86376; 86800

== ENCOUNTER → 2019-11-11 | Outpatient (CLI) | payer OTHER ==
--- NOTE | 2019-11-11 15:01 | BD ---
EXAMINATION TYPE: Axial Bone Density DATE OF EXAM: 11/11/2019 COMPARISON: NONE CLINICAL HISTORY: HYPOGONADISM Height: 5 FT 1 1/2 IN Weight: 175 FRAX RISK QUESTIONS: Alcohol (3 or more units per day): NO Family History (Parent hip fracture): NO Glucocorticoids (More than 3mos): NO (Ex: prednisone, prednisolone, methylprednisolone, dexamethasone, and hydrocortisone). History of Fracture in Adulthood: NO Secondary Osteoporosis: 1. Type 1 Diabetes: NO 2. Hyperthyroidism: NO 3. Menopause before 45: NA 4. Malnutrition: NO 5. Chronic liver disease: NO Rheumatoid Arthritis: NO Current Tobacco Use: YES RISK FACTORS HISTORY OF: Active: YES Lost more than 2 inches in height since high school: YES MEDICATIONS: Additional Medications: ANTI- BIOTICS, MOTRIN FOR SINUS SURG Additional History: EXAM MEASUREMENTS: Bone mineral densitometry was performed using the [employer] System. Bone mineral density as measured about the Lumbar spine is: ----- L1-L4(G/cm2): 1.274 T Score Values are as follows: ----- L2: 0.7 ----- L3: 1.3 ----- L4: 0.4 ----- L1-L4: 0.8 BASELINE Bone mineral density about the R hip (g/cm2): 0.958 Bone mineral density about the L hip (g/cm2): 0.908 T Score values are as follows: -----R Neck: -0.6 -----L Neck: -0.9 -----R Total: -1.3 -----L Total: -1.1 BASELINE IMPRESSION: Osteopenia (T Score between -2.5 and -1) overall in both hips. There is slightly increased risk of fracture and the patient may be considered for treatment. Re-Screen 2-5 years. NOTE: T-SCORE=SD OF THE YOUNG ADULT MEAN.
== END | disposition home or self-care (01) ==
LOC: RADBDWWP 13:27
PROVIDERS: ATTEND Internal Medicine
DX: M85.88 Other specified disorders of bone density and structure, other site (principal)
CPT/HCPCS: 77080

== ENCOUNTER → 2020-06-10 | Outpatient (CLI) | payer OTHER ==
[2020-06-10 12:41] LABS: Basophils # (A) 0.1 k/uL (0-0.2); Basophils % (A) 1 %; Eosinophils # (A) 0.1 k/uL (0-0.7); Eosinophils % (A) 2 %; HCT 51.8 % (39.0-53.0); HGB 16.3 gm/dL (13.0-17.5); Lymphocytes % (A) 32 %; MCH 29.4 pg (25.0-35.0); MCHC 31.6 g/dL (31.0-37.0); Mean Platelet Volume 6.9; Monocytes # (A) 0.4 k/uL (0-1.0); Monocytes % (A) 7 %; Neutrophils # (A) 3.7 k/uL (1.3-7.7); Neutrophils % (A) 58 %; Platelet Count 321 k/uL (150-450); RBC 5.57 m/uL (4.30-5.90); RDW 13.4 % (11.5-15.5); WBC 6.4 k/uL (3.8-10.6)
[2020-06-10 21:31] LABS: % Iron Saturation 33.06 (15.00-50.00)
[2020-06-10 21:39] LABS: Ferritin 34.5 ng/mL (22.0-322.0)
== END | disposition home or self-care (01) ==
LOC: LABWHC1 11:19
PROVIDERS: ATTEND Nurse Practitioner
DX: R77.8 Other specified abnormalities of plasma proteins (principal)
CPT/HCPCS: 36415; 82728; 83540; 83550; 85025

== ENCOUNTER 2020-07-07 07:58 | Day surgery (SDC) | payer OTHER ==
[2020-07-05 16:38] VITALS: BMI 22.3
[~2020-07-07 07:58] MED LIST changes: +LIDOCAINE 1% (10MG/ML) FOR IV START INTRADERMA PRN; -LIDOCAINE 1% 20 ML VIAL (10MG/ML) FOR IV START INTRADERMA PRN
[2020-07-07 08:23] VITALS: TEMP 97.4
[2020-07-07] MEDS ORDERED: PROPOFOL 10 MG/ML 20 ML VIAL IV ONE (08:51)
[2020-07-07] MEDS ORDERED: LIDOCAINE 1% INJ 10MG/ML (20 ML MDV) ONE (08:51)
--- NOTE | 2020-07-07 09:02 | P.PCN ---
Date of Procedure: 07/07/20 Procedure(s) Performed: BRIEF HISTORY: Patient is a 64-year-old, pleasant, male scheduled for an upper endoscopy as a part of evaluation of intermittent dysphagia to pills the last 2 months duration. He denies any dysphagia or odynophagia with food. PROCEDURE PERFORMED: Esophagogastroduodenoscopy with biopsy. PREOPERATIVE DIAGNOSIS: Intermittent dysphagia to pills. IV sedation per anesthesia. PROCEDURE: After informed consent was obtained, the patient was brought into the endoscopy unit. IV sedation was administered by Anesthesia under continuous monitoring. Initially the Olympus GIF-140 video endoscope was inserted into the mouth. Esophagus intubated without any difficulty. It was gradually advanced into the stomach and duodenum and carefully examined. The bulb and the second part of the duodenum appeared normal. The scope at this time was withdrawn to the stomach, adequately insufflated with air, and upon careful examination, mucosa of the antrum, had scattered erosions and biopsies were done from this area. The body, cardia and the fundus appeared normal. The scope was then wit hdrawn into the esophagus. The GE junction was located at 39 cm from the incisors. The esophagus appeared normal. There were no erosions or ulcerations seen . The proximal cervical esophagus was carefully examined and there was no evidence of Zenker's diverticulum or stricture identified and the patient tolerated the procedure well. IMPRESSION: 1. Normal-appearing esophagus with no evidence of esophagitis, esophageal stricture or Zenker's diverticulum. 2. Antral erosive gastritis. RECOMMENDATIONS: The findings of this examination were discussed with the patient as well as his family. He was advised to follow with the biopsy results..
[2020-07-07 09:13] VITALS: RESP 16
[2020-07-07 09:23] VITALS: PULSE 50
[2020-07-07 09:26] VITALS: BP 112/68
== END 2020-07-07 09:45 | disposition home or self-care (01) ==
LOC: ORWHC2ENDO 07:58
PROVIDERS: ATTEND Internal Medicine Gastroenterology
DX: K29.50 Unspecified chronic gastritis without bleeding (principal); K29.60 Other gastritis without bleeding; K31.89 Other diseases of stomach and duodenum; J44.9 Chronic obstructive pulmonary disease, unspecified; F17.200 Nicotine dependence, unspecified, uncomplicated; M19.90 Unspecified osteoarthritis, unspecified site; Z96.5 Presence of tooth-root and mandibular implants; Z87.442 Personal history of urinary calculi
CPT/HCPCS: 88305; 43239; J2001; J2704

== ENCOUNTER → 2021-04-07 | Outpatient (CLI) | payer MEDICARE, OTHER ==
[2021-04-07 16:01] LABS: HCT 49.9 % (39.6-50.0); HGB 16.2 g/dL (13.0-17.0); MCH 29.1 pg (27.0-32.0); MCHC 32.5 g/dL (32.0-37.0); MCV 89.7 fL (80.0-97.0); Mean Platelet Volume 9.6 fL (9.5-12.2); Platelet Count 305 X 10*3/uL (140-440); RBC 5.56 X 10*6/uL (4.40-5.60); RDW 12.9 % (11.5-14.5); WBC 7.13 X 10*3/uL (4.50-10.00)
[2021-04-07 17:35] LABS: Hemoglobin A1C 5.6 % (4.0-6.0)
[2021-04-08 02:41] LABS: Insulin Level 3.3 mIU/mL (3.0-25.0)
[2021-04-08 12:41] LABS: African American GFR (CKD) 108.6 (60.0-200.0); Albumin 4.3 g/dL (3.80-4.90); Albumin/Globulin Ratio 2.26 (1.60-3.17); Anion Gap 5.5 mmol/L (4.00-12.00); Bilirubin, Conjugated 0.2 mg/dL (0.20-0.40); Bilirubin,Unconjugated 0.4 mg/dL; C Reactive Protein, High Sens 1.05 mg/L (0.000-3.000); Carbon Dioxide 28.5 mmol/L (21.6-31.8); Chol/HDL Ratio 3.51; Globulin 1.9 g/dL (1.6-3.3); LDL Cholesterol,Calculated 103.8 mg/dL (0.0-131.0); Non-African American GFR(CKD) 93.7 (60.0-200.0); Potassium 4.7 mmol/L (3.5-5.5); Total Bilirubin 0.6 mg/dL (0.3-1.2); Total Protein 6.2 g/dL (6.2-8.2); VLDL Calculation 14.2 mg/dL (5.00-40.00)
[2021-04-08 12:50] LABS: T4, Free (Free Thyroxine) 1.3 ng/dL (0.80-1.80)
[2021-04-08 12:51] LABS: Ferritin 22.5 ng/mL (22.0-322.0)
== END | disposition home or self-care (01) ==
LOC: LABWHC1 09:53
PROVIDERS: ATTEND Obstetrics & Gynecology Obstetrics
DX: Z12.5 Encounter for screening for malignant neoplasm of prostate (principal); E78.00 Pure hypercholesterolemia, unspecified; R73.09 Other abnormal glucose; E03.9 Hypothyroidism, unspecified; E55.9 Vitamin D deficiency, unspecified; E53.8 Deficiency of other specified B group vitamins
CPT/HCPCS: 36415; 80051; 80061; 80076; 82306; 82565; 82607; 82642; 82728; 82947; 83036; 83090; 83525; 84140; 84153; 84270; 84439; 84443; 84481; 84482; 84520; 85027; 86141

== ENCOUNTER → 2022-04-26 | Outpatient (CLI) | payer MEDICARE, OTHER ==
[2022-04-26 15:06] LABS: Basophils # (A) 0.11 X 10*3/uL (0.00-0.10); Basophils % (A) 1.6 %; Eosinophils % (A) 2.9 %; HCT 48.4 % (39.6-50.0); HGB 15.6 g/dL (13.0-17.0); Immature Grans, Automated 0.3 %; Lymphocytes # (A) 1.86 X 10*3/uL (0.90-5.00); Lymphocytes % (A) 26.9 %; MCH 28.4 pg (27.0-32.0); MCHC 32.2 g/dL (32.0-37.0); MCV 88.2 fL (80.0-97.0); Mean Platelet Volume 9.8 fL (9.5-12.2); Monocytes # (A) 0.61 X 10*3/uL (0.20-1.00); Monocytes % (A) 8.8 %; NRBC Per 100 WBC 0 /100 WBCS (0.0-0.0); Neutrophils # (A) 4.11 X 10*3/uL (1.80-7.70); Neutrophils % (A) 59.5 %; Platelet Count 317 X 10*3/uL (140-440); RBC 5.49 X 10*6/uL (4.40-5.60); RDW 14.2 % (11.5-14.5); WBC 6.91 X 10*3/uL (4.50-10.00)
[2022-04-26 17:35] LABS: Thyroid Peroxidase Antibodies 9.5 U/mL (0.0-33.0)
[2022-04-26 19:07] LABS: ALT 13 U/L (10-49); AST 18 U/L (14-35); African American GFR (CKD) 102.8 (60.0-200.0); Albumin 4.4 g/dL (3.8-4.9); Alkaline Phosphatase 78 U/L (41-126); BUN/Creat Ratio 18.78 Ratio (12.00-20.00); Blood Urea Nitrogen 16.9 mg/dL (9.0-27.0); C Reactive Protein <0.30 mg/dL (0.00-0.80); Calcium 9.6 mg/dL (8.7-10.3); Carbon Dioxide 27.9 mmol/L (20.0-27.5); Chloride 103 mmol/L (96-109); Chol/HDL Ratio 3.42 Ratio; Ferritin 19.3 ng/mL (22.0-322.0); Glucose 95 mg/dL (70-110); Non-African American GFR(CKD) 88.7 (60.0-200.0); Potassium 5.1 mmol/L (3.5-5.5); Sodium 140 mmol/L (135-145); Total Protein 6.4 g/dL (6.2-8.2); VLDL Calculation 12.94 mg/dL (5.00-40.00)
[2022-04-26 21:56] LABS: Insulin Level 3.4 mIU/mL (3.0-25.0)
== END | disposition home or self-care (01) ==
LOC: LABWHC1 08:48
PROVIDERS: ATTEND Obstetrics & Gynecology Obstetrics
DX: Z00.00 Encounter for general adult medical examination without abnormal findings (principal)
CPT/HCPCS: 36415; 80053; 80061; 82607; 82642; 82728; 83036; 83090; 83525; 84140; 84270; 84432; 84439; 84443; 84482; 85025; 86140; 86376

== ENCOUNTER → 2023-09-13 | Outpatient (CLI) | payer MEDICARE, OTHER ==
--- NOTE | 2023-09-13 10:59 | CT ---
EXAMINATION TYPE: CT abdomen pelvis wo con DATE OF EXAM: 09/13/2023 HISTORY: gross hematuria CT DLP: 654 mGycm. Automated Exposure Control for Dose Reduction was Utilized. TECHNIQUE: CT scan of the abdomen and pelvis is performed without oral or IV contrast. COMPARISON: NONE FINDINGS: Within the limitations of a non-contrast study, the following observations are made. LUNG BASES: No significant abnormality is appreciated. LIVER/GB: Several scattered simple-appearing thin-walled cysts throughout the liver along with additi onal subcentimeter round low-density lesions that are too small to further characterize. PANCREAS: No significant abnormality is seen. SPLEEN: No significant abnormality is seen. ADRENALS: No significant abnormality is seen. KIDNEYS: There are a few simple-appearing thin-walled cysts scattered throughout the left kidney. No renal stones or hydronephrosis seen bilaterally. There is a 1.7 cm depending calculus in the bladder axial image 115. BOWEL: No and abnormal small or large bowel dilatation. Mild to moderate right-sided colonic fecal pr ominence. Mild fecal prominence in the transverse and sigmoid colon. Some sigmoid colonic diverticula . No CT evidence for acute diverticulitis. GENITAL ORGANS: Prostate gland is normal in size. LYMPH NODES: No greater than 1cm abdominal or pelvic lymph nodes are appreciated. OSSEOUS STRUCTURES: Multilevel Facet arthropathy in the lower lumbar spine is present. OTHER: Moderate calcified plaque of the aorta extends into branch vessels. IMPRESSION: 1. There is 1.7 cm bladder calculus. Advise urology follow-up. 2. Mild colonic fecal stasis or constipation. No bowel obstruction.
== END | disposition home or self-care (01) ==
LOC: RADCTMAIN 09:55
PROVIDERS: ATTEND Family Medicine
DX: N21.0 Calculus in bladder (principal); R31.0 Gross hematuria
CPT/HCPCS: 74176

== ENCOUNTER → 2023-10-17 | Outpatient (CLI) | payer MEDICARE, OTHER ==
[2023-10-17 16:31] LABS: BUN/Creat Ratio 16.56 Ratio (12.00-20.00); Blood Urea Nitrogen 14.9 mg/dL (9.0-27.0); Calcium 9.4 mg/dL (8.7-10.3); Carbon Dioxide 28.4 mmol/L (21.6-31.8); Chloride 104 mmol/L (96-109); Glucose 93 mg/dL (70-110); Potassium 5.1 mmol/L (3.5-5.5); Sodium 140 mmol/L (135-145)
[2023-10-17 16:44] LABS: Basophils % (A) 1.4 %; Eosinophils # (A) 0.19 X 10*3/uL (0.04-0.35); Eosinophils % (A) 2.7 %; HCT 48.2 % (39.6-50.0); HGB 15.7 g/dL (13.0-17.0); Lymphocytes # (A) 1.88 X 10*3/uL (0.90-5.00); Lymphocytes % (A) 26.7 %; MCHC 32.6 g/dL (32.0-37.0); Mean Platelet Volume 9.9 FL (9.5-12.2); Monocytes % (A) 8.5 %; NRBC Per 100 WBC 0 X 10*3/uL (0.00-0.01); Neutrophils # (A) 4.25 X 10*3/uL (1.80-7.70); Neutrophils % (A) 60.3 %; Platelet Count 337 X 10*3/uL (140-440); RBC 5.24 X 10*6/uL (4.40-5.60); RDW 12.6 % (11.5-14.5); WBC 7.05 X 10*3/uL (4.50-10.00)
== END | disposition home or self-care (01) ==
LOC: LABPAT 09:35
PROVIDERS: ATTEND Urology
DX: Z01.812 Encounter for preprocedural laboratory examination (principal); N21.0 Calculus in bladder
CPT/HCPCS: 36415; 80048; 85025

== ENCOUNTER 2023-10-25 09:09 | Day surgery (SDC) | payer MEDICARE, OTHER ==
--- NOTE | 2023-10-20 12:10 | P.GSHP ---
History of Present Illness H&P Date: 10/20/23 Chief Complaint: Gross hematuria The patient is a 68-year-old white male with a history of urolithiasis. He recently presented with gross hematuria and increased urinary frequency. Urine cytology and urine culture were both negative. CT scan shows at least 1 bladder calculus measuring approximately 1.7 cm in size. - Constitutional Constitutional: Denies chills, Denies fever - Respiratory Respiratory: Reports cough, Reports dyspnea - Gastrointestinal Gastrointestinal: Denies nausea, Denies vomiting - Genitourinary (Male) Genitourinary: Reports dysuria, Reports hematuria Past Medical History Past Medical History: COPD, Osteoarthritis (OA) Additional Past Medical History / Comment(s): HX OF KIDNEY STONES, "mild copd", gout, History of Any Multi-Drug Resistant Organisms: None Reported Past Surgical History: Appendectomy, Orthopedic Surgery Additional Past Surgical History / Comment(s): ARTHROSCOPY RT KNEE, RT SHOULDER arthroscopy, SX FOR KIDNEY STONE, rhinoplasty Past Anesthesia/Blood Transfusion Reactions: No Reported Reaction Past Psychological History: No Psychological Hx Reported Additional Psychological History / Comment(s): . Past Alcohol Use History: None Reported Additional Past Alcohol Use History / Comment(s): STARTED SMOKING IN , quit smoking 02/16/19 Past Drug Use History: None Reported - Past Family History Father Family Medical History: Cancer Medications and Allergies Home Medications Medication Instructions Recorded Confirmed Type Cholecalciferol [Vitamin D3 (25 1,000 unit PO DAILY 11/22/18 07/07/20 History Mcg = 1000 Iu)] Multivitamin,Therapeutic [Thera] 1 tab PO DAILY 11/22/18 07/07/20 History Hormone Therapy Pill 1 tab PO DAILY 07/05/20 07/07/20 History Allergies Allergy/AdvReac Type Severity Reaction Status Date / Time No Known Allergies Allergy Verified 07/07/20 08:25 Surgical - Exam - General well developed, well nourished, no distress - Abdomen Abdomen: soft, non tender, no guarding, no rigid, no rebound - Genitourinary normal penis with no external lesions, testicles non-tender - Rectum Rectum: normal sphincter tone, no masses - Psychiatric oriented to time, oriented to person, oriented to place, speech is normal, memory intact Results - Imaging CT scan - pelvis: report reviewed, image reviewed Assessment and Plan (1) Calculus in bladder Status: Acute Code(s): N21.0 - CALCULUS IN BLADDER SNOMED Code(s): 59029536 Plan: Cystoscopy with cystolithotripsy. The procedure has been reviewed in detail with the patient. He has been made aware of potential risks, which include anesthesia, bleeding, infection, bladder perforation, and postoperative urinary retention.
[2023-10-22 13:08] VITALS: BMI 22.5
[~2023-10-25 09:09] MED LIST changes: +HYDROmorphone 0.5 MG/0.5 ML SYRINGE IVP PRN; -LACTATED RINGERS 1,000 ML IV SCH; -LIDOCAINE 1% (10MG/ML) FOR IV START INTRADERMA PRN; +MIDAZOLAM 2 MG/2 ML VIAL IV PRN
[2023-10-25] MEDS: LACTATED RINGERS 1,000 ML IV SCH (09:45)
[2023-10-25] MEDS: LIDOCAINE 1% (10MG/ML) FOR IV START INTRADERMA PRN (09:45)
[2023-10-25] MEDS: ONDANSETRON 4 MG/2 ML VIAL IVP ONE (09:50)
[2023-10-25] MEDS: DEXAMETHASONE SOD PHOSPHATE 4 MG/ML 1 ML VIAL IV ONE (09:50)
[2023-10-25] MEDS ORDERED: ePHEDrine 50 MG/ML 1 ML VIAL ONE (10:43)
[2023-10-25] MEDS ORDERED: LIDOCAINE 1% INJ 10MG/ML (20 ML MDV) ONE (10:43)
[2023-10-25] MEDS ORDERED: ATROPINE SULFATE 0.4 MG/ML 1 ML VIAL ONE (10:43)
[2023-10-25] MEDS ORDERED: MIDAZOLAM 2 MG/2 ML VIAL ONE (10:43)
[2023-10-25] MEDS ORDERED: GLYCOPYRROLATE 0.2 MG/ML 2 ML VIAL ONE (10:43)
[2023-10-25] MEDS ORDERED: SUCCINYLCHOLINE CHLORIDE 200 MG/10 ML VIAL IV ONE (10:43)
[2023-10-25] MEDS ORDERED: fentaNYL (PF) 50 MCG/ML 2 ML AMP ONE (10:43)
[2023-10-25] MEDS ORDERED: PROPOFOL 10 MG/ML 20 ML VIAL IV ONE (10:43)
--- NOTE | 2023-10-25 11:38 | P.OP ---
Date of Procedure: 10/25/23 Preoperative Diagnosis: Bladder calculus Postoperative Diagnosis: Same Procedure(s) Performed: Cystoscopy with cystolithotripsy Anesthesia: RHETT Surgeon: Cristino French Estimated Blood Loss (ml): 0 IV fluids (ml): 800 Pathology: other (Calculus fragments, sent for chemical analysis) Condition: stable Disposition: PACU Indications for Procedure: The patient is a 68-year-old white male with a history of urolithiasis. He recently presented with gross hematuria and increased urinary frequency. Urine cytology and urine culture were both negative. CT scan shows at least 1 bladder calculus measuring approximately 1.7 cm in size. Operative Findings: 17 to 20 mm bladder calculus, removed completely. Trilobar BPH. Description of Procedure: The patient was taken to the operating room and placed in the dorsal lithotomy position, with legs supported in Noe stirrups. The external genitalia was prepped and draped sterilely. The 30 lens was used to introduce the 21-Italian Cordon cystoscopic sheath through the urethra and into the bladder under direct vision. The urethra appeared normal. The prostate showed evidence of trilobar enlargement and was visually occluded. The prostatic urethra measured 2.5-3.0 cm in length. The bladder was examined in its entirety. The ureteral orifices appeared normal. A 17 to 20 mm bladder calculus was seen. No tumors were seen. No diverticuli were seen. Using the 1000 micron Holmium laser probe, lithotripsy was performed. Lithotripsy was continued until all calculus fragments could be removed through the cystoscope. Once this was completed, the bladder was inspected. There was no active bleeding, and no evidence of bladder perforation. An 18-Italian Blum catheter was placed. The return was clear. The patient tolerated the procedure well was taken to the recovery room in stable condition.
[2023-10-25 12:12] VITALS: TEMP 97.7
[2023-10-25 13:50] VITALS: BP 121/70; PULSE 70; RESP 16
== END 2023-10-25 13:22 | disposition home or self-care (01) ==
LOC: OR 09:09
PROVIDERS: ATTEND Urology
DX: N21.0 Calculus in bladder (principal); N40.0 Benign prostatic hyperplasia without lower urinary tract symptoms; J44.9 Chronic obstructive pulmonary disease, unspecified; M19.90 Unspecified osteoarthritis, unspecified site; Z87.442 Personal history of urinary calculi; Z87.891 Personal history of nicotine dependence; Z90.49 Acquired absence of other specified parts of digestive tract
CPT/HCPCS: 52317; 82365; C1769; C1894; J2250; J0330; J0461; J1100; J0690; J2405; J2001; J3010; J2704

== ENCOUNTER → 2023-11-14 | Outpatient (CLI) | payer MEDICARE, OTHER ==
[2023-11-14 17:00] LABS: Basophils % (A) 1.4 %; Eosinophils # (A) 0.17 X 10*3/uL (0.04-0.35); Eosinophils % (A) 2.4 %; HCT 48.1 % (39.6-50.0); HGB 15.1 g/dL (13.0-17.0); Lymphocytes % (A) 22.7 %; MCH 29.2 pg (27.0-32.0); MCHC 31.4 g/dL (32.0-37.0); Mean Platelet Volume 9.9 FL (9.5-12.2); Monocytes # (A) 0.55 X 10*3/uL (0.20-1.00); Monocytes % (A) 7.8 %; NRBC Per 100 WBC 0 X 10*3/uL (0.00-0.01); Neutrophils # (A) 4.62 X 10*3/uL (1.80-7.70); Neutrophils % (A) 65.4 %; Platelet Count 326 X 10*3/uL (140-440); RBC 5.17 X 10*6/uL (4.40-5.60); RDW 13.2 % (11.5-14.5); WBC 7.06 X 10*3/uL (4.50-10.00)
[2023-11-14 17:50] LABS: Homocysteine 11.4 UMOL/L (4.00-14.00); Thyroid Peroxidase Antibodies 12.5 U/mL (0.0-33.0)
[2023-11-14 18:23] LABS: ALT 17 U/L (10-49); AST 21 U/L (14-35); Albumin 4.7 g/dL (3.8-4.9); Albumin/Globulin Ratio 2.14 Ratio (1.60-3.17); Alkaline Phosphatase 101 U/L (41-126); BUN/Creat Ratio 17.89 Ratio (12.00-20.00); Blood Urea Nitrogen 16.1 mg/dL (9.0-27.0); Carbon Dioxide 28.1 mmol/L (21.6-31.8); Chloride 105 mmol/L (96-109); Chol/HDL Ratio 2.96 Ratio; Ferritin 15.2 ng/mL (22.0-322.0); GGT 15 U/L (0-73); Globulin 2.2 g/dL (1.6-3.3); Glucose 93 mg/dL (70-110); LDL Cholesterol,Calculated 110.4 mg/dL (0.0-131.0); Potassium 5.1 mmol/L (3.5-5.5); Sodium 143 mmol/L (135-145); T4, Free (Free Thyroxine) 1.32 ng/dL (0.80-1.80); Total Bilirubin 0.3 mg/dL (0.3-1.2); Total Protein 6.9 g/dL (6.2-8.2)
== END | disposition home or self-care (01) ==
LOC: LABWHC1 09:29
PROVIDERS: ATTEND Obstetrics & Gynecology Obstetrics
DX: Z12.5 Encounter for screening for malignant neoplasm of prostate (principal); E55.9 Vitamin D deficiency, unspecified; E87.8 Other disorders of electrolyte and fluid balance, not elsewhere classified; L65.9 Nonscarring hair loss, unspecified; E06.3 Autoimmune thyroiditis; D51.8 Other vitamin B12 deficiency anemias; E78.2 Mixed hyperlipidemia; M10.9 Gout, unspecified; R74.8 Abnormal levels of other serum enzymes; R73.09 Other abnormal glucose; R79.82 Elevated C-reactive protein (CRP); R94.6 Abnormal results of thyroid function studies
CPT/HCPCS: 36415; 80053; 80061; 82306; 82607; 82642; 82728; 82977; 83036; 83090; 83525; 84140; 84153; 84270; 84432; 84439; 84443; 84481; 84550; 85025; 86141; 86376

== ENCOUNTER → 2024-05-13 | Outpatient (CLI) | payer MEDICARE, OTHER ==
[2024-05-13 15:31] LABS: Basophils # (A) 0.12 X 10*3/uL (0.00-0.10); Basophils % (A) 1.7 %; Eosinophils # (A) 0.22 X 10*3/uL (0.04-0.35); Eosinophils % (A) 3.1 %; HCT 49.2 % (39.6-50.0); HGB 15.7 g/dL (13.0-17.0); Lymphocytes # (A) 1.88 X 10*3/uL (0.90-5.00); Lymphocytes % (A) 26.3 %; MCH 28.7 pg (27.0-32.0); MCHC 31.9 g/dL (32.0-37.0); MCV 89.9 FL (80.0-97.0); Monocytes # (A) 0.62 X 10*3/uL (0.20-1.00); Monocytes % (A) 8.7 %; NRBC Per 100 WBC 0 X 10*3/uL (0.00-0.01); Neutrophils # (A) 4.29 X 10*3/uL (1.80-7.70); Neutrophils % (A) 60.1 %; Platelet Count 303 X 10*3/uL (140-440); RBC 5.47 X 10*6/uL (4.40-5.60); RDW 14.8 % (11.5-14.5); WBC 7.14 X 10*3/uL (4.50-10.00)
[2024-05-13 15:59] LABS: ALT 16 U/L (10-49); AST 22 U/L (14-35); Albumin 4.5 g/dL (3.8-4.9); Albumin/Globulin Ratio 2.05 Ratio (1.60-3.17); Alkaline Phosphatase 102 U/L (41-126); BUN/Creat Ratio 25.38 Ratio (12.00-20.00); Blood Urea Nitrogen 20.3 mg/dL (9.0-27.0); C Reactive Protein <0.30 mg/dL (0.00-0.80); Calcium 9.6 mg/dL (8.7-10.3); Chloride 104 mmol/L (96-109); Chol/HDL Ratio 2.81 Ratio; Ferritin 29.2 ng/mL (22.0-322.0); GGT 14 U/L (0-73); Globulin 2.2 g/dL (1.6-3.3); Glucose 87 mg/dL (70-110); Potassium 5.3 mmol/L (3.5-5.5); Sodium 141 mmol/L (135-145); T4, Free (Free Thyroxine) 1.26 ng/dL (0.80-1.80); Total Bilirubin 0.4 mg/dL (0.3-1.2); Total Protein 6.7 g/dL (6.2-8.2); Uric Acid 5.5 mg/dL (3.7-8.7); VLDL Calculation 10.04 mg/dL (5.00-40.00)
[2024-05-13 18:24] LABS: Insulin Level 2.8 mIU/mL (3.0-25.0)
[2024-05-13 18:37] LABS: Homocysteine 8.44 UMOL/L (4.00-14.00)
[2024-05-13 19:25] LABS: Thyroid Peroxidase Antibodies 14.2 U/mL (0.0-33.0)
== END | disposition home or self-care (01) ==
LOC: LABWHC1 09:11
PROVIDERS: ATTEND Obstetrics & Gynecology Obstetrics
DX: Z12.5 Encounter for screening for malignant neoplasm of prostate (principal); D64.9 Anemia, unspecified; E87.8 Other disorders of electrolyte and fluid balance, not elsewhere classified; L65.9 Nonscarring hair loss, unspecified; E06.3 Autoimmune thyroiditis; D51.8 Other vitamin B12 deficiency anemias; E78.2 Mixed hyperlipidemia; M10.9 Gout, unspecified; R74.8 Abnormal levels of other serum enzymes; R73.09 Other abnormal glucose; R79.82 Elevated C-reactive protein (CRP); R94.6 Abnormal results of thyroid function studies
CPT/HCPCS: 36415; 80053; 80061; 82607; 82642; 82728; 82977; 83036; 83090; 83525; 84140; 84153; 84154; 84270; 84432; 84439; 84443; 84481; 84550; 85025; 86140; 86376

== ENCOUNTER → 2024-10-17 | Outpatient (CLI) | payer MEDICARE, OTHER ==
[2024-10-17 15:10] LABS: Basophils # (A) 0.09 X 10*3/uL (0.00-0.10); Basophils % (A) 1.3 %; Eosinophils # (A) 0.18 X 10*3/uL (0.04-0.35); Eosinophils % (A) 2.6 %; HCT 49.3 % (39.6-50.0); HGB 15.4 g/dL (13.0-17.0); Lymphocytes # (A) 1.79 X 10*3/uL (0.90-5.00); Lymphocytes % (A) 26.3 %; MCH 28.6 pg (27.0-32.0); MCHC 31.2 g/dL (32.0-37.0); MCV 91.5 FL (80.0-97.0); Mean Platelet Volume 9.9 FL (9.5-12.2); Monocytes # (A) 0.55 X 10*3/uL (0.20-1.00); Monocytes % (A) 8.1 %; NRBC Per 100 WBC 0 X 10*3/uL (0.00-0.01); Neutrophils # (A) 4.18 X 10*3/uL (1.80-7.70); Neutrophils % (A) 61.4 %; Platelet Count 318 X 10*3/uL (140-440); RBC 5.39 X 10*6/uL (4.40-5.60); RDW 13.1 % (11.5-14.5); WBC 6.81 X 10*3/uL (4.50-10.00)
[2024-10-17 16:03] LABS: ALT 16 U/L (10-49); AST 21 U/L (14-35); Albumin 4.5 g/dL (3.8-4.9); Albumin/Globulin Ratio 2.05 Ratio (1.60-3.17); Alkaline Phosphatase 94 U/L (41-126); C Reactive Protein, High Sens 0.705 mg/L (0.000-3.000); Calcium 9.3 mg/dL (8.7-10.3); Carbon Dioxide 29.4 mmol/L (21.6-31.8); Chloride 105 mmol/L (96-109); Chol/HDL Ratio 3.27 Ratio; Ferritin 34.1 ng/mL (22.0-322.0); GGT 13 U/L (0-73); Globulin 2.2 g/dL (1.6-3.3); Glucose 98 mg/dL (70-110); LDL Cholesterol,Calculated 101.7 mg/dL (0.0-131.0); Potassium 5.1 mmol/L (3.5-5.5); Sodium 143 mmol/L (135-145); T4, Free (Free Thyroxine) 1.32 ng/dL (0.80-1.80); Total Bilirubin 0.3 mg/dL (0.3-1.2); Total Protein 6.7 g/dL (6.2-8.2); Uric Acid 5.1 mg/dL (3.7-8.7); VLDL Calculation 14.96 mg/dL (5.00-40.00)
[2024-10-17 18:14] LABS: Homocysteine 8.17 UMOL/L (4.00-14.00); Thyroid Peroxidase Antibodies 11.5 U/mL (0.0-33.0)
[2024-10-17 18:41] LABS: Insulin Level 5.1 mIU/mL (3.0-25.0)
== END | disposition home or self-care (01) ==
LOC: LABWHC1 09:32
PROVIDERS: ATTEND Obstetrics & Gynecology Obstetrics
DX: E87.8 Other disorders of electrolyte and fluid balance, not elsewhere classified (principal); E06.3 Autoimmune thyroiditis; M81.0 Age-related osteoporosis without current pathological fracture; E55.9 Vitamin D deficiency, unspecified; D64.9 Anemia, unspecified; L65.9 Nonscarring hair loss, unspecified; E78.2 Mixed hyperlipidemia; M10.9 Gout, unspecified; R94.6 Abnormal results of thyroid function studies; R74.8 Abnormal levels of other serum enzymes; R79.82 Elevated C-reactive protein (CRP); R73.09 Other abnormal glucose
CPT/HCPCS: 36415; 80053; 80061; 82306; 82330; 82642; 82728; 82977; 83036; 83090; 83525; 83970; 84140; 84270; 84432; 84439; 84443; 84481; 84550; 85025; 86141; 86376; 86800